=== PATIENT | male | born 1995 | race Two or more races ===

== ENCOUNTER 2018-01-31 15:03 | Emergency (ER) | payer BC, OTHER ==
[~2018-01-31] VITALS: Ht 177.8 cm; Wt 83.9 kg
[~2018-01-31 15:03] MED LIST: BISM262T15 PO
[2018-01-31 16:16] LABS: *BILIRUBIN,URIN NEGATIVE (NEGATIVE); *BLOOD, URINE NEGATIVE (NEGATIVE); *CLARITY,URINE CLEAR (CLEAR); *COLOR,URINE YELLOW (YELLOW); *KETONES,URINE NEGATIVE (NEGATIVE); *PROTEIN,URINE NEGATIVE (NEGATIVE); *UROBILINOGEN,URINE 0.2 E.U./dl (NORMAL); LEUKOCYTE ESTERASE ,URINE NEGATIVE (NEGATIVE); NITRITE, URINE NEGATIVE (NEGATIVE); UGLUCOSE NEGATIVE (NEGATIVE)
[2018-01-31 16:17] LABS: BACTERIA,URINE NONE SEEN /HPF (NONE SEEN); RBC,URINE 0-3 /HPF (0-3); SQUAMOUS EPITHELIAL CELL,UR NONE SEEN /HPF (NONE SEEN); WBC,URINE 0-3 /HPF (0-3)
[2018-01-31] MEDS ORDERED: AZITHROMYCIN 250 MG TABLET PO ONE (16:45)
[2018-01-31] MEDS ORDERED: CEFTRIAXONE 500 MG VIAL IV ONE (16:45)
[2018-01-31] MEDS ORDERED: LIDOCAINE HCL 1% 20 ML VIAL ONE (16:52)
[2018-01-31] MEDS ORDERED: CEFTRIAXONE 500 MG VIAL ONE (16:52)
[2018-01-31] MEDS ORDERED: AZITHROMYCIN 250 MG TABLET ONE (16:52)
[2018-01-31] MEDS ORDERED: CEFTRIAXONE 500 MG VIAL IM ONE (17:00)
[2018-01-31 17:02] VITALS: BP 110/66
--- NOTE | 2018-01-31 17:03 | NUR ---
Patient discharged to home in stable conditon. Written and verbal after care instructions given. Patient verbalizes understanding of instructions.
[2018-02-03 08:09] LABS: *GC NAA Negative (Negative)
[2018-02-03 09:08] LABS: *TRIC.VAG. NAA Negative (Negative)
== END 2018-01-31 17:05 | disposition home or self-care (01) ==
LOC: ER 15:05
DX: N50.811 Right testicular pain (principal); N50.82 Scrotal pain; Z88.0 Allergy status to penicillin
CPT/HCPCS: 76870; 87491; A4663; J0696; J3490; Q0144